=== PATIENT | male | born 1930 | race Caucasian/White ===

== ENCOUNTER 2017-08-14 10:58 | Outpatient (CLI) | payer OTHER ==
[~2017-08-14 10:58] MED LIST: AMILODIPINE; CATAFLAM50 MG PO; HYDROXYUREA PO; LOSARTAN POTASS50 MG PO; MIRALAX510 GM PO; NABUMETONE500 MG PO; NORFLEX100MG PO; NeurRONTin 100mg cap PO; OXYC1TAB9 PO; PERCOCET 5/3251 TAB PO; SIMVASTATIN5 MG PO; XARELTO10 MG PO
== END 2017-08-14 11:02 | disposition home or self-care (01) ==
LOC: TOM 10:58
DX: G89.11 Acute pain due to trauma (principal); R51 Headache

== ENCOUNTER 2017-08-14 11:04 | Outpatient (CLI) | payer OTHER | END 2017-08-14 11:09 | disposition home or self-care (01) | LOC: RAD 11:04 | DX: M25.561 Pain in right knee (principal); M25.562 Pain in left knee ==

== ENCOUNTER 2018-09-05 05:54 | Emergency (ER) | payer OTHER ==
[~2018-09-05] VITALS: Ht 144.8 cm; Wt 52.2 kg
== END 2018-09-05 14:19 | disposition home or self-care (01) ==
LOC: ER 05:54
DX: G45.8 Other transient cerebral ischemic attacks and related syndromes (principal); R47.81 Slurred speech; R41.0 Disorientation, unspecified; R53.81 Other malaise

== ENCOUNTER 2020-01-26 09:53 | Outpatient (CLI) | payer OTHER | END 2020-01-26 10:02 | disposition home or self-care (01) | LOC: NUCLEAR 09:53 | PROVIDERS: ATTEND Podiatrist Foot Surgery | DX: I73.9 Peripheral vascular disease, unspecified (principal) ==